=== PATIENT | female | born 1980 | race Caucasian/White ===

== ENCOUNTER → 2016-10-30 | Outpatient (CLI) | payer OTHER ==
[~2016-10-30] MED LIST: DOXY50CA PO; MELO7.5T5 PO
--- NOTE | 2016-10-31 08:10 | KCIC ---
MRI left knee without contrast dated 10/30/2016. No comparison available. CLINICAL INDICATION: Left knee pain and swelling. TECHNIQUE: Routine multiplanar multisequence MR imaging performed. FINDINGS: Mild tricompartmental hypertrophic change with small marginal osteophytes. Thinning and surface irregularity of the articular cartilage throughout. No full-thickness osteochondral defect. Small joint effusion. Small popliteal cyst measures up to 3.1 cm craniocaudal dimension. No intra-articular loose body. Anterior cruciate and posterior cruciate ligaments are intact. Medial and lateral collateral complexes are intact. Iliotibial band, popliteus tendon and has anserine complex within normal limits. Quadriceps and patellar tendon are intact. No abnormality of the medial or lateral retinaculum. There is a small radial defect through the peripheral red red zone of the medial meniscal root. Posterior horn, anterior horn and body are intact. Lateral meniscus normal in morphology and signal. IMPRESSION: 1. Small radial tear through the peripheral aspect of the medial meniscal root. 2. Mild tricompartmental degenerative arthrosis and chondromalacia. 3. Small joint effusion and small popliteal cyst. Electronically signed by: Babatunde Ruiz MD (10/31/2016 8:06 AM)
== END | disposition home or self-care (01) ==
LOC: KCIC MRI 16:43
PROVIDERS: ATTEND Family Medicine
DX: M25.562 Pain in left knee (principal); M25.462 Effusion, left knee
CPT/HCPCS: 73721